=== PATIENT | male | born 1985 | race Caucasian/White ===

== ENCOUNTER 2020-11-09 09:59 | Emergency (ER) | payer OTHER, BC ==
[2020-11-09] MEDS ORDERED: Diphtheria,Pertussis(Acell),Tetanus Vaccine 0.5 ML Syringe IM ONE (10:28)
--- NOTE | 2020-11-09 10:30 | EDM.PDOC ---
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 is Sat, off work tomorrow Right Finger-Index Pain Score (Numeric/FACES): 7 - Related Data Allergies Allergy/AdvReac Type Severity Reaction Status Date / Time methylphenidate HCl Allergy Swelling Verified 11/09/20 10:34 [From Ritalin] Home Meds: Home Meds Escitalopram Oxalate 40 mg PO DAILY 09/11/14 [History] Social & Family History - Caffeine Use Caffeine Use: Reports: Soda - Recreational Drug Use Recreational Drug Use: No - Living Situation & Occupation Living situation: Reports: Single Occupation: Employed ED ROS GENERAL - Review of Systems Review Of Systems: See Below Constitutional: Reports: No Symptoms HEENT: Reports: No Symptoms Respiratory: Reports: No Symptoms Cardiovascular: Reports: No Symptoms Endocrine: Reports: No Symptoms GI/Abdominal: Reports: No Symptoms : Reports: No Symptoms Musculoskeletal: Reports: No Symptoms Skin: Reports: Wound Neurological: Reports: No Symptoms Psychiatric: Reports: No Symptoms Hematologic/Lymphatic: Reports: No Symptoms Immunologic: Reports: No Symptoms ED EXAM, SKIN/RASH Exam: See Below Exam Limited By: No Limitations General Appearance: Alert, WD/WN, No Apparent Distress Skin: Wound/Incision (Surgi-Cleanse used to clean base of finger, wound cleaned with gauze and NS x 6, 3-0 Prolene x 4 for closure, good apposition margins), Other (R index finger on the palmar aspect between DIP and PIP is a horizontal lac, 3 cm long, extends partially on lateral aspect with mild distal loss of sensation on lateral aspect, FROM, no visible tendon, no bone or joint injury, 2% lido without with #27 needle for digit block after sterile prep) Course - Vital Signs Last Recorded V/S: Last Vital Signs Temp 36.4 C 11/09/20 09:59 Pulse 100 11/09/20 09:59 Resp 18 11/09/20 09:59 BP 130/76 11/09/20 09:59 Pulse Ox 99 11/09/20 09:59 - Orders/Labs/Meds Orders: Active Orders 24 hr Category Date Time Status Vaccines to be Administered [RC] PER UNIT ROUTINE Care 11/09/20 10:28 Ordered Meds: Medications Discontinued Medications Generic Name Dose Route Start Last Admin Trade Name Miles PRN Reason Stop Dose Admin Diphtheria/Tetanus/Acell Pertussis 0.5 ml 11/09/20 10:28 Diphtheria,Pertussis(Acell),Tetanus Vaccine 0.5 Ml Syringe IM 11/09/20 10:29 .ONCE ONE - Re-Assessments/Exams Free Text/Narrative Re-Assessment/Exam: 11/09/20 10:56 TdaP given, pt aware that there may be mild numbness in one year on lateral aspect Departure - Departure Time of Disposition: 10:49 Disposition: Home, Self-Care 01 Condition: Good Clinical Impression: Laceration of right index finger - Discharge Information *PRESCRIPTION DRUG MONITORING PROGRAM REVIEWED*: Not Applicable *COPY OF PRESCRIPTION DRUG MONITORING REPORT IN PATIENT MIC: Not Applicable Instructions: Laceration Care, Adult Forms: ED Department Discharge Additional Instructions: Keep clean and dry and covered with a dressing and a splint. While infection is unlikely, see a physician the same day for any increase in redness, swelling, pain, warmth, fever or drainage. See Dr Link in 6 days to remove sutures. Sepsis Event Note (ED) - Evaluation Sepsis Screening Result: No Definite Risk - Focused Exam Vital Signs: Vital Signs Temp Pulse Resp BP Pulse Ox 11/09/20 09:59 36.4 C 100 18 130/76 99 - My Orders Last 24 Hours: My Active Orders 11/09/20 10:28 Vaccines to be Administered [RC] PER UNIT ROUTINE - Assessment/Plan Last 24 Hours: My Active Orders 11/09/20 10:28 Vaccines to be Administered [RC] PER UNIT ROUTINE
[2020-11-09 13:27] VITALS: BP 135/81; PULSE 77
== END 2020-11-09 11:35 | disposition home or self-care (01) ==
LOC: FB.ED 09:59
DX: S61.210A Laceration without foreign body of right index finger without damage to nail, initial encounter (principal); Z23 Encounter for immunization; Z88.8 Allergy status to other drugs, medicaments and biological substances; W26.0XXA Contact with knife, initial encounter; Y92.89 Other specified places as the place of occurrence of the external cause; Y99.0 Civilian activity done for income or pay
CPT/HCPCS: 12002; 90471; 90715; 99000; 99282-25